=== PATIENT | female | born 1985 | race Caucasian/White ===

== ENCOUNTER 2020-11-09 20:03 | Emergency (ER) | payer OTHER, SELFPAY ==
--- NOTE | ~2020-11-09 | US_ITS ---
EXAMINATION: US OB <= 14 weeks fetus EXAM DATE: 11/09/2020 23:35 INDICATION: Abdominal, pelvic pain. Back pain. 1st trimester. TECHNIQUE: Pelvic obstetrical transabdominal sonogram was performed by a technologist. There are mu ltiple grayscale and Doppler images available for interpretation. There are no earlier studies of th is gestation for comparison. FINDINGS: Uterus measures 11.9 x 9.0 x 7.6 cm. There is intrauterine gestation sac. pole with heart rate confirmed at 167 beats per minute. The 2.9 cm crown-rump length corresponds to estimated gestational age by ultrasound of 9 weeks 5 days, MARIA 06/09/2021. Yolk sac is identified. There is no sonographic evidence of subchorionic hemorrhage. The ovaries are morphologically normal. IMPRESSION: Early live intrauterine gestation, age by ultrasound 9 weeks 5 days. Reviewed, dictated and finalized at location A. IMPRESSION: Early live intrauterine gestation, age by ultrasound 9 weeks 5 day s.
[2020-11-09 20:10] VITALS: BP 116/71; PULSE 104; RESP 16; TEMP 37.1; O2SAT 100
[2020-11-09 20:34] VITALS: BP 118/73; PULSE 101; RESP 18; O2SAT 98
[2020-11-09 20:36] LABS: Add Urine Microscopic? YES; Amorphous Sediment Urine Moderate; Appearance Urine Cloudy (Clear); Bacteria Urine Trace /hpf; Bilirubin Urine Negative (Negative); Blood Urine Negative (Negative); Color Urine Yellow (Yellow); Glucose Urine UA Negative (Negative); Ketones Urine Negative (Negative); Leukocyte Esterase Ur Negative LEU/UL (Negative); Mucus Urine Rare /lpf; Nitrate Urine Negative (Negative); Protein Urine Negative (Negative); RBC Urine 0-2 /hpf (0-2); Specific Grav Ur 1.021 (1.001-1.035); Squamous Epithelial Cell Urine Moderate /hpf (Few); WBC Urine 0-3 /hpf
[2020-11-09 20:49] LABS: Basophils Percent Auto 0.2 % (0.2-1.2); Eosinophils Absolute Auto 0.1 K/mm3 (0-0.3); Eosinophils Percent Auto 0.9 % (0-4.4); Hematocrit 31.6 % (37.0-47.0); Immature Granulocyte Absolute 0.03 K/mm3 (0.00-0.031); Immature Granulocyte Percent A 0.3 % (0-0.5); Lymphocytes Absolute Auto 2.62 K/mm3 (0.9-3.2); Lymphocytes Percent Auto 24.8 % (18.3-44.2); Mean Corpuscular HGB Conc 34.8 g/dl (32-36); Mean Corpuscular Hemoglobin 32.4 pg (26-34); Mean Corpuscular Volume 93.2 fl (80-100); Mean Platelet Volume 9.4 fl (7.4-10.4); Monocytes Percent Auto 9.2 % (2.6-8.5); Neutrophils Absolute Auto 6.8 K/mm3 (1.3-6.7); Neutrophils Percent Auto 64.6 % (45.5-73.1); Platelet Count Result 264 k/mm3 (150-375); Red Blood Count 3.39 M/mm3 (4.2-5.4); Red Cell Distribution Width 13.2 % (11.5-14.5); White Blood Count 10.6 K/mm3 (4.5-10.0)
--- NOTE | 2020-11-09 20:54 | ED.ABDPAIN ---
HPI - Abdominal Pain General Chief Complaint: Abdominal Pain Stated Complaint: 4-6 weeks , cramping Time Seen by Provider: 11/09/20 20:22 Source: patient and RN notes reviewed Mode of arrival: ambulatory Limitations: no limitations History of Present Illness HPI narrative: This is a 35 year old female approximately 8 wk GA who presents for evaluation of abdominal cramping. LMP 09/09/20. She reports intermittent lower abdominal cramping that worsened 2 days ago. She also reports diarrhea , nausea and vomiting yesterday. She is also complaining of increased urinary urgency and frequency. She denies fever or chills. She also denies vaginal bleeding or spotting. [facility] [place]. Pain 06/26. Related Data Allergies Allergy/AdvReac Type Severity Reaction Status Date / Time Sulfa (Sulfonamide AdvReac Other Verified 11/09/20 20:35 Antibiotics) Review of Systems Review of Systems: All systems reviewed & are unremarkable except as noted in HPI and below PMFSH Past Medical History Medical History (Updated 11/10/20 @ 01:[address] MD) Kidney stones Surgical History Surgical History (Updated 11/09/20 @ 20:[address] MD) No pertinent past surgical history Social History Social History (Updated 11/09/20 @ 20:[address] MD) Smoking status: Never smoker Exam Const: General: alert Orientation/consciousness: patient oriented x3 Eyes: EOM: EOMs intact bilaterally Resp: Effort & Inspection: normal respiratory effort and no retractions Auscultation: clear to auscultation bilaterally Cardio: Rate: regular rate Rhythm: regular rhythm Heart sounds: no murmurs GI: GI Palp: Yes Soft to palpation, Yes Tenderness to palpation present (GI) (suprapubic), No Guarding due to palpation present (GI) and No Rigid due to palpation Auscultation: normal bowel sounds Skin: General skin exam: normal color Rashes: no rashes Neuro: General: patient oriented x3, moves all extremities and CN's II-XI intact bilaterally Psych: Mental Status: mental status grossly normal Affect: normal affect Course Reevaluation(s) Reevaluation #1: I reviewed US with patient. She has no vaginal bleeding or sign of hemorrhage on US so no rhogam. She has appointment on Wednesday. She defers PElvic at this time. Date: 11/10/20 Time: 01:07 Vital Signs Vital signs: Vital Signs Temperature 98.8 F 11/09/20 20:10 Pulse Rate 104 H 11/09/20 20:10 Respiratory Rate 16 11/09/20 20:10 Blood Pressure 116/71 11/09/20 20:10 Pulse Oximetry 100 11/09/20 20:10 Temperature 98.2 F 11/10/20 01:36 Pulse Rate 78 11/10/20 01:43 Respiratory Rate 18 11/10/20 01:43 Blood Pressure 117/72 11/10/20 01:43 Pulse Oximetry 99 11/10/20 01:43 MDM - Abdominal Pain Lab Data Attestation: I reviewed the patient's lab results. Result diagrams: 11/09/20 20:42 11/09/20 20:42 Labs: Lab Results 11/09/20 11/09/20 11/09/20 Range/Units 20:13 20:42 20:42 WBC 10.6 H (4.5-10.0) K/mm3 RBC 3.39 L (4.2-5.4) M/mm3 Hgb 11.0 L (12.0-15.0) g/dL Hct 31.6 L (37.0-47.0) % MCV 93.2 (80-100) fl MCH 32.4 (26-34) pg MCHC 34.8 (32-36) g/dl RDW 13.2 (11.5-14.5) % Plt Count 264 (150-375) k/mm3 MPV 9.4 (7.4-10.4) fl Immature Gran % (Auto) 0.3 (0-0.5) % Neut % (Auto) 64.6 (45.5-73.1) % Lymph % (Auto) 24.8 (18.3-44.2) % [place] % (Auto) 9.2 H (2.6-8.5) % Eos % (Auto) 0.9 (0-4.4) % Baso % (Auto) 0.2 (0.2-1.2) % Lymph # (Auto) 2.62 (0.9-3.2) K/mm3 [place] # (Auto) 1.0 H (0.1-0.6) K/mm3 Eos # (Auto) 0.1 (0-0.3) K/mm3 Baso # (Auto) 0.0 (0.0-0.1) K/mm3 Abs Immat Gran (auto) 0.03 (0.00-0.031) K/mm3 Absolute Neuts (auto) 6.8 H (1.3-6.7) K/mm3 Absolute Nucleated RBC 0.0 (0.0-0.012) K/mm3 Nucleated RBC %
[2020-11-09 21:00] LABS: Alanine Aminotransferase 17 U/L (4-35); Albumin Level 3.7 g/dL (3.5-5.1); Alkaline Phosphatase 28 U/L (38-126); Anion Gap 8 mmol/L (8-16); Aspartate Amino Transferase 20 U/L (14-36); Bilirubin,Total 0.6 mg/dL (0.2-1.3); Blood Urea Nitrogen 7 mg/dL (7-17); Calcium 8.9 mg/dL (8.4-10.2); Carbon Dioxide 24 mmol/L (22-30); Chloride 101 mmol/L (98-107); Estimated Glomerular Filt Rate > 60; Glucose 96 mg/dL (65-110); Lipase 37 U/L (23-300); Potassium 3.5 mmol/L (3.4-5.0); Sodium 133 mmol/L (137-145)
[2020-11-09] MEDS: LACTATED RINGERS 1,000 ML 999 ML IV CONT (21:48)
--- NOTE | 2020-11-09 23:44 | PC.NURSE ---
assume care of pt at this time. received report from nadya hemphill.
[2020-11-09 23:46] VITALS: BP 105/48; PULSE 74; RESP 20; O2SAT 98
[2020-11-10 01:36] VITALS: BP 118/75; PULSE 80; RESP 20; TEMP 36.8; O2SAT 100
[2020-11-10 01:43] VITALS: BP 117/72; PULSE 78; RESP 18; O2SAT 99
== END 2020-11-10 01:45 | disposition home or self-care (01) ==
PROVIDERS: Emergency Medicine; Emergency Provider General Practice
DX: O26.891 Other specified pregnancy related conditions, first trimester (principal); R10.30 Lower abdominal pain, unspecified; Z87.442 Personal history of urinary calculi; Z3A.09 9 weeks gestation of pregnancy
CPT/HCPCS: 36415; 76801; 80053; 81001; 81025; 83690; 84702; 85025; 85461; 90384; 96361; 96365; 96372; 99284; J0131; J2790; J7120

== ENCOUNTER → 2021-02-27 13:21 | Outpatient (CLI) | payer OTHER, SELFPAY ==
--- NOTE | ~2021-02-27 | US_ITS ---
EXAMINATION: US OB /maternal detail DATE: 02/27/2021 14:19 INDICATION: survey TECHNIQUE: Multiple obstetric sonographic images performed. FINDINGS: Comparison ultrasound dated 11/09/2020 There is a single living fetus in breech presentation. The placenta is posterior without placenta pr evia. Placental margin is 6.2 cm to the cervix. Amniotic fluid volume is subjectively normal. cardiac activity and movement is noted with a heart rate of 167 beats per minute. C ervical length is 3.1 cm. The following anatomy was identified as normal: 4 chamber heart 3 vessel cord cord insertion kidneys urinary bladder stomach spine diaphragm ventricles cisterna magna cerebellum The following biometric data were obtained: BPD: 62mm corresponds to gestational age 25 weeks 1 days. Head circumference: 233 mm corresponds to gestational age 25 weeks 3 days. Abdominal circumference: 211 mm corresponds to gestational age 25 weeks 4 days. Femur length: 45 mm corresponds to gestational age 24 weeks 5 days. Head circumference to abdominal circumference ratio: 1.11 (normal range for expected gestational age is 1.04-1.22). Estimated weight: 789 grams +/- 118 grams using Hadlock method, 32.3% IMPRESSION: 1: Single living intrauterine with an estimated gestational age of 25weeks 3days by initial ultrasound measurements, with an EDC of 06/09/2021 in breech presentation. 2. Normal survey. Reviewed, dictated and finalized at location A. [employer] IMPRESSION: 1: Single living intrauterine with an estimated gestational age of 25 weeks 3days by initial ultrasound measurements, with an EDC of 06/09/2021 in richard ech presentation. 2. Normal survey.
== END ==
PROVIDERS: Visit Provider Obstetrics & Gynecology
DX: Z34.92 Encounter for supervision of normal pregnancy, unspecified, second trimester (principal); Z3A.25 25 weeks gestation of pregnancy
CPT/HCPCS: 76805

== ENCOUNTER 2021-05-06 13:30 | Outpatient (RCR) | payer OTHER, SELFPAY ==
[2021-05-09] MEDS: RHO(D) IMMUNE GLOBULIN 300 MCG/2 ML SYRINGE IM (13:48)
== END 2021-08-04 23:59 | disposition home or self-care (01) ==
LOC: ANHLAB 13:30
PROVIDERS: Visit Provider Obstetrics & Gynecology
DX: Z29.13 Encounter for prophylactic Rho(D) immune globulin (principal); O36.0190 Maternal care for anti-D [Rh] antibodies, unspecified trimester, not applicable or unspecified; Z3A.00 Weeks of gestation of pregnancy not specified
CPT/HCPCS: 36415; 85461; 90384; 96372; J2790

== ENCOUNTER 2021-05-08 15:47 | Observation (INO) | payer OTHER, SELFPAY ==
[2021-05-08] VITALS (10 sets, daily range): BP systolic 95–118; BP diastolic 46–68; PULSE 80–109; TEMP 37.1–37.3; BMI 18.8
[2021-05-08] MEDS: TERBUTALINE SULFATE 1 MG/ML VIAL 0.25 MG SUB-Q ×2 (18:38→20:33)
[2021-05-08] MEDS: BETAMETHASONE SOD PHOS/ACETATE 30 MG/5 ML VIAL 12 MG IM (18:42)
--- NOTE | 2021-05-10 08:08 | PM.OBTRLD ---
OB - Triage/Final Diagnosis Visit Information Reason for evaluation: threatened labor Comments/Additional reasons for admission: I have assessed the risk for this patient, Aicha Miles, and determined that she would benefit from observation care.
== END 2021-05-08 21:33 | disposition home or self-care (01) ==
PROVIDERS: Admitting Provider Obstetrics & Gynecology; Visit Provider Obstetrics & Gynecology
DX: O47.03 False labor before 37 completed weeks of gestation, third trimester (principal); Z3A.35 35 weeks gestation of pregnancy
CPT/HCPCS: 96372; G0378; G0379; J0702; J3105

== ENCOUNTER 2021-05-09 13:13 | Outpatient (CLI) | payer OTHER, SELFPAY ==
[2021-05-09] MEDS: BETAMETHASONE SOD PHOS/ACETATE 30 MG/5 ML VIAL 12 MG IM (13:50)
== END 2021-05-09 13:14 | disposition home or self-care (01) ==
LOC: ANHOBOP 13:20
PROVIDERS: Visit Provider Obstetrics & Gynecology
DX: Z29.8 Encounter for other specified prophylactic measures (principal); O47.03 False labor before 37 completed weeks of gestation, third trimester; Z3A.36 36 weeks gestation of pregnancy
CPT/HCPCS: 96372; J0702

== ENCOUNTER 2021-05-10 15:04 | Observation (INO) | payer OTHER, SELFPAY ==
[2021-05-10 16:00] VITALS: TEMP 36.6
[2021-05-10] MEDS: ONDANSETRON HCL ODT 4 MG TABLET PO (16:18)
--- NOTE | 2021-05-10 16:36 | OBADM ---
This patient, Aicha Miles, admitted to the OB room Labor/Delivery/Recovery 104 for observation. Patient/family oriented to hospital policies and general routines including ID bracelet, bed and alarms, visiting hours, pain management, procedures, bathroom and other care routines, personal items, smoking policy, room service/diet, and visiting hours. Patient/Family are encouraged to report perceived risks to care and to ask questions if they do not understand what they are told or what they should do.
--- NOTE | 2021-05-10 16:37 | PC.NURSE ---
2156--Discussed plan of care with Dr. Maharaj. Pt is allowed to eat during observation for labor.
[2021-05-10 17:22] VITALS: BP 104/70; PULSE 97
[2021-05-10 17:30] VITALS: BP 110/67; PULSE 98
== END 2021-05-10 17:50 | disposition home or self-care (01) ==
LOC: ANHLDR 16:07
PROVIDERS: Admitting Provider Obstetrics & Gynecology; Visit Provider Obstetrics & Gynecology
DX: O47.9 False labor, unspecified (principal); Z3A.00 Weeks of gestation of pregnancy not specified
CPT/HCPCS: 84112; A9270; G0378; G0379

== ENCOUNTER 2021-05-22 10:34 | Inpatient (IN) | payer OTHER, SELFPAY ==
[2021-05-22] VITALS (79 sets, daily range): BP systolic 62–150; BP diastolic 43–81; PULSE 69–124; RESP 16; TEMP 36.9–37.2; O2SAT 94–100; BMI 19.1
--- OUTSIDE RECORDS SUMMARY | 2021-05-22 10:58 | XMS_ITS | Encounter Summary ---
:1985 Author Reason for Visit COP EXAMINER problem +hpt pt seen at [facility] are is 24 weeks EDC: 06/06/2021 transfer/ no records release signed/ will open OB flow sheet when records are received / will wait to order labs / pt locke d Rhogam at 6 weeks at [facility] due to b eing RH- / pt states baby is male and is super low and feeling lots of vaginal pressure / Low lying placenta at 16 weeks has not had anatomy scan yet/ ss Assessment and Plan 1. Suppression of menstruation ? test, urine 2. Routine care ? US, obstetric, mater nal evaluation + anatomy - cervical length check Discussion Note: None recorded.Patient educational handouts: No information available. Plan of Care Reminders Provider Appointments None recorded. ? ? Lab [facility] mg Obgyn Test, Urine 02/21/2021 Shayne Ngo Referral None recorded. ? ? Procedures None recorded. ? ? Surgeries None recorded. ? ? Imaging US, Obstetric, An leeanna Maternal 02/21/2021 [facility] Imaging Evaluation + Anatomy Medications Name Start Date ? ? ondansetron HCl 4 mg tablet ? TAKE 1 TABLET BY MOUTH EVERY 6-8 HOURS NEEDED FOR NAUSEA AND VOMITING sertraline 100 mg tablet ? TAKE 1 TABLET BY MOUTH EVERY DAY Notes: sarahi Gonsales
--- OUTSIDE RECORDS SUMMARY | 2021-05-22 10:58 | XMS_ITS | Continuity of Care Document ---
:1985 Author Organization [facility] Care Team Providers Name Role Phone [facility] Unavailable Unavailable Medications Combined list of outpatient medications from Department of Defense and Veterans Affairs facilities. Medications provided include 1) outpatient medications from [facility] 15 months, and 2) patient-reported medications. Medication Details Route Status Patient Prescription Prescription Last Ordering Order Source Instructions Expires Number Dispense Provider Date Date ALBUTEROL Active [id number] [facility], 01/04/ Pharmac SULFATE HFA 2020 y Data (albuterol Transac sulfate), tion 90 MCG, HFA Service AER AD, Facilit INHALATION, y [facility]IN [facility], 8.5 g CANISTER ALBUTEROL Active [id number] REBEKAH, 09/03/ P harmac SULFATE HFA 2020 y Data (albuterol Transac sulfate), tion 90 MCG, HFA Service AER AD, Facilit INHALATION, y [facility], 18 g CANISTER AMOXICILLIN Active [id number] [facility], 12/18 8/ Pharmac
--- OUTSIDE RECORDS SUMMARY | 2021-05-22 10:58 | XMS_ITS ---
:1985 Author Care Team Providers Name Role Phone Jordan Maharaj Primary Care Provider Unavailable Allergies Code Code System Name Reaction Severity Status Onset Sulfa Itching Severe Active ? (Sulfonamid e Antibiotics ) Notes: Some allergies listed in Document: #[id number] could not be added to this patient's chart. Please review this docu ment and add these allergies to the patient's chart manually as needed. Medications Name Status Start Date Stop Date ? ? albuterol sulfate HFA 90 Completed ? 021 mcg/actuation aerosol inhaler amoxicillin 500 mg capsule Completed ? 02/21 TAKE 1 CAPSULE BY MOUTH THREE TIMES DAILY FOR 10 DAYS azithromycin 250 mg tablet Completed ? 02/21 benzonatate 100 mg capsule Completed ? 02/21 TAKE 1 CAPSULE BY MOUTH THREE TIMES DAILY NEEDED FOR COUGH buspirone 10 mg tablet Completed ? citalopram 10 mg tablet Completed 05/18/2018 02/22/20 21 Take 1 tablet every day by oral route. desvenlafaxine succinate ER 50 Completed ? 1 04/23/2020 mg tablet,extended release 24 hr doxycycline hyclate 100 mg capsule Completed ? 02/21/2021 TAKE 1 CAPSULE BY MOUTH EVERY 12 HOURS FOR 10 DAYS fluoxetine 20 mg capsule Completed ? 021 hydrocodone 5 mg-acetaminophen Completed ? 1 04/23/2020 325 mg tablet metoclopramide 10 mg tablet Completed ? 01/19
--- OUTSIDE RECORDS SUMMARY | 2021-05-22 10:58 | XMS_ITS | Encounter Summary ---
:1985 Author Reason for Visit new OB visit Assessment and Plan 1. Routine care ? glucose tolerance test, ge stational, 1-hour ? HIV (1+2) Ab screen, serum ? hemoglobin + hematocrit, b lood Discussion Note: None recorded.Patient educational handouts: No information available. Plan of Care Reminders Provider Appointments None recorded. ? ? Lab Glucose [facility] Tolerance Test, 04/01/2021 [facility] ( Lab) Gestational, 1-Hour ? HIV (1+2) Ab [facility] Screen, Serum 04/01/2021 [facility] ( Lab) ? Hemoglobin + [facility] Hematocrit, Blood 04/01/2021 [facility] (Lab) Referral None recorded. ? ? Procedures None recorded. ? ? Surgeries None recorded. ? ? Imaging None recorded. ? ? Medications Name Start Date ? ? ondansetron HCl 4 mg tablet ? TAKE 1 TABLET BY MOUTH EVERY 6-8 HOURS NEEDED FOR NAUSEA AND VOMITING sertraline 100 mg tablet ? TAKE 1 TABLET BY MOUTH EVERY DAY Notes: flinstone gummies Medications Administered None recorded. Vitals Height Weight
--- OUTSIDE RECORDS SUMMARY | 2021-05-22 10:59 | XMS_ITS ---
:1985 Author Care Team Providers Name Role Phone TAVON JOSEPH MD Primary Care Provider [phone] Allergies Code Code System Name Reaction Severity Status Onset Sulfa Itching Severe Active ? (Sulfonamid e Antibiotics ) Notes: Some allergies listed in Document: #[id number] could not be added to this patient's chart. Please review this docu ment and add these allergies to the patient's chart manually as needed. Medications Name Status Start Date Stop Date ? ? citalopram 10 mg tablet Active ? Not avai labmei Take 1 tablet every day by oral route. metoclopramide 10 mg tablet Completed ? 01/19 Take 1 tablet every 6-8 hours by oral route. ondansetron 4 mg disintegrating tablet Completed ? 03/15/2018 Take 1 tablet every 12 hours by oral route. ondansetron HCl 4 mg tablet Completed ? 06/2018 take 1 tablet PO every 6-8 hours prn Notes: otc- Problems Name Status Onset Date Source ? Unknown 10/21/2017 ? Procedures Date Name Performed by ? ? Tonsillectomy Information not jennifer randhawa Notes: age 8 11/18/2017 US, Obstetric, Maternal [facility] ([facility] Scheduling) Evaluation + Anatomy [address], [place] [address]
[2021-05-22 11:36] LABS: Basophils Absolute Auto 0.1 K/mm3 (0.0-0.1); Basophils Percent Auto 0.5 % (0.2-1.2); Eosinophils Absolute Auto 0.2 K/mm3 (0-0.3); Eosinophils Percent Auto 0.9 % (0-4.4); Hematocrit 31.2 % (37.0-47.0); Hemoglobin 10.5 g/dL (12.0-15.0); Immature Granulocyte Absolute 0.25 K/mm3 (0.00-0.031); Immature Granulocyte Percent A 1.4 % (0-0.5); Lymphocytes Absolute Auto 3.08 K/mm3 (0.9-3.2); Lymphocytes Percent Auto 17.9 % (18.3-44.2); Mean Corpuscular HGB Conc 33.7 g/dl (32-36); Mean Corpuscular Hemoglobin 31.3 pg (26-34); Mean Corpuscular Volume 92.9 fl (80-100); Mean Platelet Volume 10.4 fl (7.4-10.4); Monocytes Absolute Auto 1.5 K/mm3 (0.1-0.6); Monocytes Percent Auto 8.6 % (2.6-8.5); Neutrophils Absolute Auto 12.2 K/mm3 (1.3-6.7); Neutrophils Percent Auto 70.7 % (45.5-73.1); Platelet Count Result 288 k/mm3 (150-375); Red Blood Count 3.36 M/mm3 (4.2-5.4); Red Cell Distribution Width 14.1 % (11.5-14.5); White Blood Count 17.3 K/mm3 (4.5-10.0)
--- NOTE | 2021-05-22 11:38 | LDADM ---
This patient, Aicha Miles, was admitted to Labor/Delivery/Recovery 107 on 05/22/21 at 10:34. Plans for labor, pain management and were discussed with patient. Patient/family oriented to hospital policies and general routines including ID bracelet, bed and alarms, visiting hours, pain management, procedures, bathroom and other care routines, personal items, smoking policy, room service/diet and guest tray routines, security routines, and visiting hours. Patient/Family are encouraged to report perceived risks to care and to ask questions if they do not understand what they are told or what they should do. See OBIX for further documentation.
--- NOTE | 2021-05-22 12:00 | PM.IMHP ---
H&P: HPI History of Present Illness Date/Time: 05/22/21 12:00 Aicha is a 36yo @ 37.3wks (MARIA 06/09/21) who presented to L&D with contractions and leakage of fluid. She denies bleeding. Feeling movement. She was found to be ruptured and 4cm dilated. Her is complicated by: - H/o PTD@ 36.5wks - ESTEFANY at 30wks - H/o anxiety and depression on zoloft 100mg - RH negative s/p rhogam - Mild anemia - Tobacco abuse Chief Complaint: leakage of fluid Review of Systems Review of Systems: All systems reviewed & are unremarkable except as noted in HPI and below (HPI) PMFSH Past Medical History Medical History Kidney stones Surgical History Surgical History History of tonsillectomy at age 8 No pertinent past surgical history Family History Family History Mother Kidney stone Anxiety Depression Hypertension Sibling Kidney stone Grandparent Cancer Other Patient's mother is Social History Social History Smoking status: Light tobacco smoker Tobacco type: cigarettes Second hand tobacco smoke exposure: Yes Substance use: never Spiritual care concerns: No Meds Home Medications and Allergies Home Medications Medication Instructions Recorded Confirmed Type acetaminophen 500 mg tablet 500 mg PO Q6H PRN 04/29/21 05/22/21 History pediatric multivitamin no.19-folic 1 tablet PO DAILY 04/29/21 05/22/21 History acid 200 mcg chewable tablet ondansetron 4 mg PO Q6H PRN 05/06/21 05/22/21 History sertraline [Zoloft] 100 mg PO DAILY 05/06/21 05/22/21 History Allergies Allergy/AdvReac Type Severity Reaction Status Date / Time Sulfa (Sulfonamide AdvReac Other Verified 05/08/21 16:06 Antibiotics) Vital Signs Vital Signs - 24 hr 05/22/21 11:31 05/22/21 11:35 Pulse Rate 103 H 103 H Blood Pressure 127/75 127/75 Exam Const: General: cooperative, healthy appearing, comfortable and no acute distress Resp: Effort & Inspection: normal respiratory effort Cardio: Rate: regular rate GI: GI Palp: No abdominal tenderness and Yes Soft to palpation : Other: FHT's: 130's/ mod jerry/ + accels/ occasional mild variable - cat 2, overall reassuring TOCO: ctx q2-4min Cervix: 4.5/90/-1 membranes: SROM presentation: cephalic Skin: General skin exam: normal color Neuro: General: patient oriented x3 Extrem: General: normal to inspection Psych: Appearance: grossly normal Affect: normal affect Attitude: cooperative H&P: Results Labs Labs: Short CBC 05/22/21 Range/Units 11:22 WBC 17.3 H (4.5-10.0) K/mm3 Hgb 10.5 L (12.0-15.0) g/dL Hct 31.2 L (37.0-47.0) % Plt Count 288 (150-375) k/mm3 Assessment and Plan Assessment and plan (1) Active labor at term: Status: Acute Additional Plan - Admit to L&D - Pitocin if contractions space out - Continuous monitoring; currently reassuring - GBS negative - Anesthesia consult PRN pain
[2021-05-22] MEDS: LACTATED RINGERS 1,000 ML 125 ML IV CONT ×2 (12:25→14:59)
[2021-05-22] MEDS: OXYTOCIN 30 UNITS/NS 500 ML 30 UNITS/500 ML BAG IV CONT (12:25)
--- NOTE | 2021-05-22 12:32 | WPDHPUPDATE1 ---
History and Physical Update Update Date/Time: 05/22/21 12:32 History and Physical has been reviewed, including an updated exam of the patient. There are NO changes in the patient's condition. Risks, benefits, and alternatives have been discussed and questions answered. Patient agrees to proceed with procedure.
--- NOTE | 2021-05-22 14:38 | WPDANESEPP ---
Anes - Eval Pre Procedure Procedure: labor epidural Date/Time: 05/22/21 14:38 Surgeon: kaycee Pre Op Diagnosis: labor Patient Data Age: 36 Gender: F Height: 1.7 m Weight: 55.5 kg Last Vital Signs Temp 37.2 C 05/22/21 11:00 Pulse 116 H 05/22/21 13:01 BP 131/68 05/22/21 13:01 Allergies Allergy/AdvReac Type Severity Reaction Status Date / Time Sulfa (Sulfonamide AdvReac Other Verified 05/08/21 16:06 Antibiotics) Home Medications Medication Instructions Recorded Confirmed Type acetaminophen 500 mg tablet 500 mg PO Q6H PRN 04/29/21 05/22/21 History pediatric multivitamin no.19-folic 1 tablet PO DAILY 04/29/21 05/22/21 History acid 200 mcg chewable tablet ondansetron 4 mg PO Q6H PRN 05/06/21 05/22/21 History sertraline [Zoloft] 100 mg PO DAILY 05/06/21 05/22/21 History Laboratory Tests 05/22/21 05/22/21 05/22/21 11:22 11:22 11:22 WBC 17.3 K/mm3 H K/mm3 (4.5-10.0) RBC 3.36 M/mm3 L M/mm3 (4.2-5.4) Hgb 10.5 g/dL L g/dL (12.0-15.0) Hct 31.2 % L % (37.0-47.0) MCV 92.9 fl fl (80-100) MCH 31.3 pg pg (26-34) MCHC 33.7 g/dl g/dl (32-36) RDW 14.1 % % (11.5-14.5) Plt Count 288 k/mm3 k/mm3 (150-375) MPV 10.4 fl fl (7.4-10.4) Immature Gran % (Auto) 1.4 % H % (0-0.5) Neut % (Auto) 70.7 % % (45.5-73.1) Lymph % (Auto) 17.9 % L % (18.3-44.2) [place] % (Auto) 8.6 % H % (2.6-8.5) Eos % (Auto) 0.9 % % (0-4.4) Baso % (Auto) 0.5 % % (0.2-1.2) Lymph # (Auto) 3.08 K/mm3 K/mm3 (0.9-3.2) [place] # (Auto) 1.5 K/mm3 H K/mm3 (0.1-0.6) Eos # (Auto) 0.2 K/mm3 K/mm3 (0-0.3) Baso # (Auto) 0.1 K/mm3 K/mm3 (0.0-0.1) Abs Immat Gran (auto) 0.25 K/mm3 H K/mm3 (0.00-0.031) Absolute Neuts (auto) 12.2 K/mm3 H K/mm3 (1.3-6.7) Absolute Nucleated RBC 0.0 K/mm3 K/mm3 (0.0-0.012) Nucleated RBC % 0.0 % % (0.0-0.2) RPR Pending Blood Type A Negative Antibody Screen Positive Antibody Identification Pending Antigen Identification Pending RHIANNA, IgG Interpret Not Performed RHIANNA, Poly Interpret Negative RHIANNA, Complement Interp Not Performed Patient hx anesthesia problems: none Family hx anesthesia problems: none Results Review: All pre-operative results and documents have been reviewed as part of the pre-operative evaluation. [facility] Past Medical History Medical History Kidney stones Surgical History Surgical History History of tonsillectomy at age 8 No pertinent past surgical history Family History Family History Mother Kidney stone Anxiety Depression Hypertension Sibling Kidney stone Grandparent Cancer Other Patient's mother is Social History Social History Smoking status: Light tobacco smoker Tobacco type: cigarettes Second hand tobacco smoke exposure: Yes Substance use: never Spiritual care concerns: No Exam Day of Procedure 05/22/21 14:38
--- NOTE | 2021-05-22 16:30 | PM.OBPNLAB ---
Pain Control Date/time seen: 05/22/21 16:30 Pain control: epidural Pelvic Exam Dilation (cm): 6 Effacement (%): 90 station: -1 Amniotic membrane status: Ruptured (SROM, clear) Contractions Monitor mode: External Contraction frequency: 2 Contraction pattern: Regular Status status: Category ll Comments: occasional mild variables Assessment and Plan Pitocin rate (mU/min): 6 Assessment: active labor Plan: continuous present management
--- NOTE | 2021-05-22 17:55 | P.PCNOB_ITS ---
OB - Delivery Note Procedure Delivery date: 05/22/21 events: Labor Augmentation (for SROM) Intrapartal events: Deceleration Delivery augmentation: rupture of membranes Delivery monitor: external FHT and external uterine Route of delivery: Laceration Description: None Quantitative Blood Loss (ml): 120 Anesthesia type: Epidural Disposition: floor Baby Date of : 05/22/21 Time of : 17:38 Weeks of gestation at delivery: 37 (.3) gender: Male Weight (pounds): 7 Weight (ounces): 2 presentation: vertex Placenta delivery description: Expressed cord vessel description: 3 Vessels and Around Extremity x2 score one minute: 8 score five minutes: 9 Narrative: Aicha progressed to complete dilation with strong desire to push. She pushed for approximately 30 minutes with good maternal effort. She delivered the head over intact perineum. No nuchal cord was palpated. She easily delivered the 's shoulders and body without complications. The umbilical cord was noted to be wrapped around each leg, explaining the variable decelerations. The infant was immediately placed skin to skin and small cry was heard. The umbilical cord was then clamped and cut. However, persistent grunting was noted and he was taken to the warmer. A segment of the cord was collected for cord gases. The remaining cord blood was collected for typing. With Pitocin running and gentle downward traction on the cord, the placenta delivered without complications. Bimanual massage was performed and good uterine tone with mini mal bleeding was noted. The patient was examined and no lacerations were noted. Sponge, lap, instrument, and needle counts were correct at the end of the procedure. Mom was left in the birthing suite in a stable condition. The infant was taken to the nursery for further evaluation of the persistent grunting. [facility] Delivery Billing Delivery Delivery: Delivery Charge
[2021-05-22] MEDS: OXYTOCIN 30 UNITS/NS 500 ML 30 UNITS/500 ML BAG 125 UNITS IV CONT (18:11)
[2021-05-22] MEDS: diphenhydrAMINE HCl CAP 25 MG CAPSULE PO (18:26)
--- NOTE | 2021-05-22 20:30 | OBPPTRN ---
Patient transferred to post room #286 via wheelchair. Support person present. Oriented to unit, room, information board, rooming in, admission packet and security measures. Patient verbalizes understanding.
[2021-05-22] MEDS: IBUPROFEN 600 MG TABLET PO (20:57)
[2021-05-23] MEDS: ACETAMINOPHEN 325 MG TABLET 650 MG PO ×3 (01:58→17:14)
[2021-05-23 04:00] VITALS: BP 112/53; PULSE 70; RESP 16; TEMP 36.8; O2SAT 99
[2021-05-23 05:11] LABS: Hematocrit 30.5 % (37.0-47.0); Hemoglobin 10.2 g/dL (12.0-15.0)
[2021-05-23] MEDS: IBUPROFEN 600 MG TABLET PO ×2 (06:47→14:06)
[2021-05-23] MEDS: SERTRALINE HCL 50 MG TABLET 100 MG PO (06:47)
[2021-05-23] MEDS: DOCUSATE SODIUM 100 MG CAPSULE PO ×2 (06:49→17:12)
[2021-05-23] MEDS: MULTIVIT/MIN/PREN/FOL AC/IRON TABLET 1 TAB PO (06:50)
[2021-05-23 08:00] VITALS: BP 112/61; PULSE 75; RESP 16; TEMP 36.6; O2SAT 99
--- NOTE | 2021-05-23 08:32 | PM.OBPNVD ---
OB - PN: Subj Subjective Date/time seen: 05/23/21 08:32 Narrative: PPD#1 Aicha reports doing well today. Her bleeding is home health cna. Her pain is controlled. She is tolerating regular diet, voiding, passing gas, and ambulating without issues. She is breast feeding. She would like her son circumcised. She would like to go home today. OB - PN: Obj Data Labs CBC & Chem 7: 05/23/21 04:20 Labs: Laboratory Results - last 24 hr 05/22/21 05/22/21 05/23/21 11:22 11:22 04:20 WBC 17.3 H RBC 3.36 L Hgb 10.5 L 10.2 L Hct 31.2 L 30.5 L MCV 92.9 MCH 31.3 MCHC 33.7 RDW 14.1 Plt Count 288 MPV 10.4 Immature Gran % (Auto) 1.4 H Neut % (Auto) 70.7 Lymph % (Auto) 17.9 L [place] % (Auto) 8.6 H Eos % (Auto) 0.9 Baso % (Auto) 0.5 Lymph # (Auto) 3.08 [place] # (Auto) 1.5 H Eos # (Auto) 0.2 Baso # (Auto) 0.1 Abs Immat Gran (auto) 0.25 H Absolute Neuts (auto) 12.2 H Absolute Nucleated RBC 0.0 Nucleated RBC % 0.0 Blood Type A Negative Antibody Screen Positive Antibody Identification Passive Due to RH Imm Glob Antigen Identification Not Reportable RHIANNA, IgG Interpret Not Performed RHIANNA, Poly Interpret Negative RHIANNA, Complement Interp Not Performed Screen Baby's Blood Type Baby's RHIANNA Doses of RhIg Required 05/23/21 04:20 WBC RBC Hgb Hct MCV MCH MCHC RDW Plt Count MPV Immature Gran % (Auto) Neut % (Auto) Lymph % (Auto) [place] % (Auto) Eos % (Auto) Baso % (Auto) Lymph # (Auto) [place] # (Auto) Eos # (Auto) Baso # (Auto) Abs Immat Gran (auto) Absolute Neuts (auto) Absolute Nucleated RBC Nucleated RBC % Blood Type A Negative Antibody Screen TNP Antibody Identification Antigen Identification RHIANNA, IgG Interpret RHIANNA, Poly Interpret RHIANNA, Complement Interp Screen Negative Baby's Blood Type A pos Baby's RHIANNA Negative Doses of RhIg Required 1 OB - PN A/P Assessment and Plan (1) Normal vaginal delivery: Code(s): O80 - Encounter for full-term uncomplicated delivery Status: Acute Plan day: 1 Plan: routine care Comments: - Pelvic rest; take meds as prescribed - ER return precautions: fever, n/v/abd pain, bleeding, HTN Time Spent With Patient Time: Total time spent is greater than 50% in coordination of care (as documented) at patient's floor/unit and/or counseling patient: Review of Systems Constitutional: Constitutional: Denies chills, Denies fever(s) and Denies headache(s) Eyes: Eyes: Denies change in vision ENT: Denies dizziness and Denies headache(s) Cardiovascular: Cardiovascular: Denies chest pain, Denies palpitations and Denies dyspnea Respiratory: Respiratory: Denies cough and Denies dyspnea Gastrointestinal: Gastrointestinal: Denies nausea and Denies vomiting Neurologic: Denies dizziness and Denies headache(s) Endocrine: Endocrine: Denies palpitations Exam Const: General: cooperative, comfortable and no acute distress Orientation/consciousness: patient oriented x3 Resp: Effort & Inspection: normal respiratory effort Auscultation: clear to auscultation bilaterally Cardio: Rate: regular rate GI: Inspection: non-distended GI Palp: No abdominal tenderness and Yes Soft to palpation Auscultation: normal bowel sounds : Other: fundus firm Skin: General skin exam: normal color Neuro: General: patient oriented x3 Extrem: General: normal to inspection Psych: Appearance: grossly normal Affect: normal affect Attitude: cooperative
[2021-05-23 09:25] LABS: Rapid Plasma Reagin Non-Reactive (NonReactive)
--- NOTE | 2021-05-23 10:09 | PM.OBDSVD ---
DS: Admitting Diagnosis Discharge Date 05/23/21 Admitting Diagnosis leakage of fluid DS: Discharge Diagnosis Discharge Diagnosis (1) Normal vaginal delivery: Code(s): O80 - Encounter for full-term uncomplicated delivery Status: Acute OB - DS: Summary OB Procedures : Ultrasound OB Procedures Intrapartum: Spontaneous Vag Delivery OB Procedures: : RHo (D) lg Peripartum Data Infant Delivery Method: Natural Vaginal Laceration Description: None complications: none 1: Gender: Male Disposition of : home Status at Discharge Functional status at discharge: independent ambulation Overall status at discharge: patient is back to baseline Time Spent with Patient Time attestation: Total time spent providing and/or coordinating discharge services: Time spent: Less than 30 minutes Exam Const: General: cooperative, comfortable and no acute distress Orientation/consciousness: patient oriented x3 Resp: Effort & Inspection: normal respiratory effort Auscultation: clear to auscultation bilaterally Cardio: Rate: regular rate GI: Inspection: non-distended GI Palp: No abdominal tenderness and Yes Soft to palpation Auscultation: normal bowel sounds : Other: fundus firm Skin: General skin exam: normal color Neuro: General: patient oriented x3 Extrem: General: normal to inspection Psych: Appearance: grossly normal Affect: normal affect Attitude: cooperative DS: Data Data Completed and Pending Labs on day of discharge: Labs from last 24 hours 05/23/21 05/23/21 05/22/21 04:20 04:20 11:22 WBC RBC Hgb 10.2 L Hct 30.5 L MCV MCH MCHC RDW Plt Count MPV Immature Gran % (Auto) Neut % (Auto) Lymph % (Auto) [place] % (Auto) Eos % (Auto) Baso % (Auto) Lymph # (Auto) [place] # (Auto) Eos # (Auto) Baso # (Auto) Abs Immat Gran (auto) Absolute Neuts (auto) Absolute Nucleated RBC Nucleated RBC % RPR Blood Type A Negative A Negative Antibody Screen TNP Positive Antibody Identification Passive Due to RH Imm Glob Antigen Identification Not Reportable RHIANNA, IgG Interpret Not Performed RHIANNA, Poly Interpret Negative RHIANNA, Complement Interp Not Performed Screen Negative Baby's Blood Type A pos Baby's RHIANNA Negative Doses of RhIg Required 1 05/22/21 05/22/21 11:22 11:22 WBC 17.3 H RBC 3.36 L Hgb 10.5 L Hct 31.2 L MCV 92.9 MCH 31.3 MCHC 33.7 RDW 14.1 Plt Count 288 MPV 10.4 Immature Gran % (Auto) 1.4 H Neut % (Auto) 70.7 Lymph % (Auto) 17.9 L [place] % (Auto) 8.6 H Eos % (Auto) 0.9 Baso % (Auto) 0.5 Lymph # (Auto) 3.08 [place] # (Auto) 1.5 H Eos # (Auto) 0.2 Baso # (Auto) 0.1 Abs Immat Gran (auto) 0.25 H Absolute Neuts (auto) 12.2 H Absolute Nucleated RBC 0.0 Nucleated RBC % 0.0 RPR Non-reactive Blood Type Antibody Screen Antibody Identification Antigen Identification RHIANNA, IgG Interpret RHIANNA, Poly Interpret RHIANNA, Complement Interp Screen Baby's Blood Type Baby's RHIANNA Doses of RhIg Required Discharge Plan Discharge Attending physician on discharge: Neelima Burch Discharging Clinician: Neelima Burch Anticipated Discharge Date/Time: 05/23/21 18:00 Patient Disposition: Home, Self-Care Activity: may shower, may drive after 2 weeks and pelvic rest Diet: regular Patient Instructions: Antibiotic Form Stand Alone Forms: General Discharge Information Follow-up/Referrals: Neelima Burch MD [Physician] - 4 Weeks Discharge Medications: New acetaminophen [Mapap (acetaminophen)] 325 mg Tablet 650 mg PO Q6H PRN (Reason: Mild Pain (1-3) Or Headache) 10 Days Qty: 60 RF: 0 docusate sodium 100 mg Capsule 100 mg PO BID PRN (Reason: Constipation) 30 Days Qty: 60 RF: 0 ibuprofen 600 mg Tablet 600 mg PO Q6H PRN (Reason: Professional Nurse
[2021-05-23] MEDS: RHO(D) IMMUNE GLOBULIN 300 MCG/2 ML SYRINGE IM (11:07)
--- NOTE | 2021-05-23 11:27 | PC.NURSE ---
[id number] Consulted with patient and mother shared her extensive experience with her last baby and how went. Parents both shared experiences of the frustration, lack of milk, trying everything and balancing feeding the with her mental health history that is still managed today. Mother plans to breastfeed and supplement with formula. Clarified with parents the desire to make human milk for as long as she can. Reviewed frequent stimulation for milk production, nipple stretching, breast hand expression or effective nursing 8-12 times in 24 hours. Mother states she will give it all another attempt but not put too much pressure on herself. Mother voiced she is able to latch without discomfort most of the time and detach when there is pain. Nipple care reviewed. Mother verbalizes understanding to call out for RN assistance if she is unable to latch for feeding or she has discomfort with nursing and to initiate feeding when feeding cues are visualized or three hours from the start of the last feeding. Reported to primary RN
[2021-05-23 12:30] VITALS: BP 103/63; PULSE 86; RESP 16; TEMP 36.7; O2SAT 98
[2021-05-23 17:12] VITALS: BP 114/75; PULSE 93; RESP 18; TEMP 36.2
[2021-05-26 08:44] VITALS: BP 109/70; PULSE 88; RESP 20; TEMP 37.4; O2SAT 97
== END 2021-05-23 19:50 | disposition home or self-care (01) | DRG 807 ==
LOC: ANHOB2 05-23 09:45 → ANHLDR 05-26 10:59 → ANHOB2 05-26 10:59
PROVIDERS: Admitting Provider Obstetrics & Gynecology; Visit Provider Obstetrics & Gynecology
DX: O76 Abnormality in fetal heart rate and rhythm complicating labor and delivery (principal); Z37.0 Single live birth; O99.344 Other mental disorders complicating childbirth; F41.8 Other specified anxiety disorders; O99.02 Anemia complicating childbirth; D64.9 Anemia, unspecified; O99.334 Smoking (tobacco) complicating childbirth; F17.210 Nicotine dependence, cigarettes, uncomplicated; O69.82X0 Labor and delivery complicated by other cord entanglement, without compression, not applicable or unspecified; Z3A.37 37 weeks gestation of pregnancy; Z23 Encounter for immunization
CPT/HCPCS: 36415; 85014; 85018; 85025; 85461; 86592; 86850; 86880; 86900; 86901; 86902; 90384; 90471; 90653; A9270; G0008; J2590; J2790; J2795; J7120

== ENCOUNTER 2021-12-23 10:30 | Outpatient (CLI) | payer OTHER, SELFPAY ==
--- NOTE | ~2021-12-23 | XR_ITS ---
EXAMINATION:XR cervical spine 4-5V DATE: 12/23/2021 10:58 INDICATION: Neck pain TECHNIQUE: AP, lateral, lateral swimmers and odontoid views of the cervical spine are provided. COMPARISON: None FINDINGS: There are 2 mm of retrolisthesis of C5 on C6. The odontoid is intact. No fracture is identi fied. There is mild loss of intervertebral disc space height at C5-6. The vertebral body heights are normal. There is mild bilateral uncovertebral joint osteoarthritis at C5-6. Prevertebral soft tissues are normal. IMPRESSION: 1. Mild cervical spondylosis without acute findings. Reviewed, dictated and finalized at location B.
--- NOTE | ~2021-12-23 | XR_ITS ---
EXAMINATION: XR lumbar spine 2-3V DATE: 12/23/2021 10:58 INDICATION: Numbness and tingling of the toes TECHNIQUE: Anteroposterior and lateral views of the lumbar spine, and cone-down lateral view of the l umbosacral junction were obtained. COMPARISON: None. FINDINGS: There is no fracture, dislocation, or subluxation. The vertebral body heights, alignment, a nd intervertebral disc spaces are normal. The paravertebral soft tissues are unremarkable. A moderate volume of colonic stool is present. IMPRESSION: 1. No acute osseous abnormality. Reviewed, dictated and finalized at location B.
--- NOTE | ~2021-12-23 | XR_ITS ---
EXAMINATION: XR chest 2V DATE: 12/23/2021 10:59 INDICATION: Chest pain TECHNIQUE: PA and lateral views of the chest are obtained. COMPARISON: None available FINDINGS: The lungs are free of acute opacities. No pleural effusion or pneumothorax. The cardiomedia stinal silhouette is normal. The visualized bones and soft tissues are unremarkable. IMPRESSION: 1. No acute cardiopulmonary abnormality. Reviewed, dictated and finalized at location B.
== END 2021-12-23 10:31 | disposition home or self-care (01) ==
PROVIDERS: PCP Emergency Medicine; Visit Provider Emergency Medicine
DX: M47.812 Spondylosis without myelopathy or radiculopathy, cervical region (principal); M54.50 Low back pain, unspecified; R20.0 Anesthesia of skin
CPT/HCPCS: 71046; 72050; 72100

== ENCOUNTER 2023-04-29 10:56 | Outpatient (RCR) | payer OTHER, SELFPAY ==
--- NOTE | 2023-04-02 08:11 | PCPTNOTE ---
Pt could not be seen for her initial evaluation waiting for approval from the health insurance adjuster.
--- NOTE | 2023-04-21 09:33 | PCPTNOTE ---
Patient did not show up for scheduled initial evaluation this date.
--- NOTE | 2023-04-29 17:04 | OPREHPOC ---
Outpatient Therapy Plan of Care This is a Multidisciplinary Plan of Care that may contain components documented by all disciplines (PT, OT, and ST.) PT Problem 1 PT Problem #1 Knowledge Deficit PT Goal 1 Goal Pt to be IND with issued HEP Target Visit 8 PT Problem 2 PT Problem #2 Pain PT Goal 1 Goal Pt to report neck pain no greater than 3/10 in the last week . Target Visit 8 PT Goal 2 Goal Pt to report low back pain no greater than 3/10 in the last week. Target Visit 8 PT Problem 3 PT Problem #3 Impaired Strength PT Goal 1 Goal Pt to demonstrate a functional lift and carry with 30lb without compensations Target Visit 8 PT Goal 2 Goal Pt to demonstrate BLE strength grossly 4+/5
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
--- NOTE | 2023-05-05 10:47 | PCPTNOTE ---
Patient called & cancelled scheduled appointment this date due to illness.
--- NOTE | 2023-05-11 11:19 | PCPTNOTE ---
Patient did not show up for scheduled appointment this date. Called and LVM with instructions to call to reschedule.
--- NOTE | 2023-05-13 11:04 | PCPTNOTE ---
Patient did not show up for scheduled appointment this date. Called and LVM with details of next appointment.
--- NOTE | 2023-05-19 15:50 | PCPTNOTE ---
Patient no showed to appointment this date. Patient will be discharged after today per no show policy.
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
== END 2023-05-21 13:57 | disposition home or self-care (01) ==
LOC: ANHGOSHPT 10:56
PROVIDERS: PCP Emergency Medicine; Visit Provider Obstetrics & Gynecology
DX: M54.2 Cervicalgia (principal); M79.629 Pain in unspecified upper arm; V89.2XXA Person injured in unspecified motor-vehicle accident, traffic, initial encounter
CPT/HCPCS: 97110; 97161; 99199

== ENCOUNTER 2023-06-08 10:47 | Outpatient (CLI) | payer OTHER, SELFPAY ==
--- NOTE | 2023-06-08 11:02 | ECG_ITS ---
Measurements Intervals [place] Rate: 62 P: 70 SC: 154 QRS: 79 QRSD: 97 T: 38 QT: 363 QTc: 370 Interpretive Statements SINUS RHYTHM POSSIBLE LEFT ATRIAL ENLARGEMENT [-0.1mV P WAVE IN V1/V2] INCOMPLETE RIGHT BUNDLE BRANCH BLOCK [90+ ms QRS DURATION, TERMINAL R IN V1/V2, 40+ ms S IN I/aVL/V4/V5/V6] NO PREVIOUS ECG AVAILABLE FOR COMPARISON Electronically Signed On 06-08-2023 15:46:02 [employer]IRT [employer]ESSER by Kendra Hutton M.D.
== END 2023-06-08 10:48 | disposition home or self-care (01) ==
PROVIDERS: PCP Emergency Medicine; Visit Provider Obstetrics & Gynecology
DX: R93.1 Abnormal findings on diagnostic imaging of heart and coronary circulation (principal); I45.10 Unspecified right bundle-branch block
CPT/HCPCS: 93005

== ENCOUNTER 2023-06-17 06:06 | Observation (INO) | payer OTHER, SELFPAY ==
[2023-06-17 06:24] VITALS: PULSE 75; O2SAT 100
[2023-06-17 06:25] VITALS: BP 111/64; PULSE 87; RESP 18; TEMP 36.4
[2023-06-17 06:31] VITALS: BMI 18.6
--- NOTE | 2023-06-17 06:32 | OBADM ---
This patient, Aicha Miles, admitted to the OB room 113 for observation for nausea/vomiting and dizziness. Patient/family oriented to hospital policies and general routines including ID bracelet, bed and alarms, visiting hours, pain management, procedures, bathroom and other care routines, personal items, smoking policy, room service/diet, and visiting hours. Patient/Family are encouraged to report perceived risks to care and to ask questions if they do not understand what they are told or what they should do.
[2023-06-17 06:58] LABS: Appearance Urine Cloudy (Clear); Bacteria Urine 2+ /hpf; Bilirubin Urine Negative (Negative); Blood Urine Negative (Negative); Color Urine Yellow (Yellow); Glucose Urine UA Negative (Negative); Ketones Urine Negative (Negative); Leukocyte Esterase Ur 2+ LEU/UL (Negative); Nitrate Urine Negative (Negative); Non Pathogenic Casts 0-2; Protein Urine Trace mg/dL (Negative); RBC Urine 0-2 /hpf (0-2); Specific Grav Ur 1.023 (1.001-1.035); Squamous Epithelial Cell Urine Moderate /hpf (Few); WBC Urine 21-50 /hpf
[2023-06-17 07:54] LABS: Add Urine Microscopic? YES
--- NOTE | 2023-06-17 08:08 | PC.NURSE ---
Called Dr. Maharaj via cell phone (per exchange and office instructions) and left message to call unit back regarding antepartum patient.
[2023-06-17] MEDS: LACTATED RINGERS 1,000 ML 999 ML IV CONT (09:18)
[2023-06-17] MEDS: FAMOTIDINE 20 MG/2 ML VIAL IV PUSH (09:19)
[2023-06-17] MEDS: ONDANSETRON INJ 4 MG/2 ML VIAL IV PUSH (09:19)
[2023-06-17 09:34] LABS: Basophils Percent Auto 0.3 % (0.2-1.2); Eosinophils Absolute Auto 0.2 K/mm3 (0-0.3); Eosinophils Percent Auto 1.2 % (0-4.4); Hematocrit 36.2 % (37.0-47.0); Hemoglobin 12.2 g/dL (12.0-15.0); Immature Granulocyte Absolute 0.07 K/mm3 (0.00-0.031); Immature Granulocyte Percent A 0.5 % (0-0.5); Lymphocytes Absolute Auto 2.25 K/mm3 (0.9-3.2); Lymphocytes Percent Auto 16.8 % (18.3-44.2); Mean Corpuscular HGB Conc 33.7 g/dl (32-36); Mean Corpuscular Volume 97.8 fl (80-100); Mean Platelet Volume 9.9 fl (7.4-10.4); Monocytes Absolute Auto 0.6 K/mm3 (0.1-0.6); Monocytes Percent Auto 4.4 % (2.6-8.5); Neutrophils Absolute Auto 10.3 K/mm3 (1.3-6.7); Neutrophils Percent Auto 76.8 % (45.5-73.1); Platelet Count Result 284 k/mm3 (150-375); Red Cell Distribution Width 14.1 % (11.5-14.5); White Blood Count 13.4 K/mm3 (4.5-10.0)
--- NOTE | 2023-06-17 09:39 | PC.NURSE ---
Dr. Maharaj at [facility]. Made aware of pt complaints, lab results, and orders by Dr. Burch. Will send pt home with gwen. No further orders given at this time.
[2023-06-17 09:45] LABS: Alanine Aminotransferase 11 U/L (6-35); Albumin Level 3.7 g/dL (3.5-5.1); Alkaline Phosphatase 41 U/L (38-126); Anion Gap 3 mmol/L (8-16); Aspartate Amino Transferase 20 U/L (14-36); Bilirubin,Total 0.7 mg/dL (0.2-1.3); Blood Urea Nitrogen 7 mg/dL (7-17); Calcium 8.6 mg/dL (8.4-10.2); Carbon Dioxide 25 mmol/L (22-30); Chloride 108 mmol/L (98-107); Estimated CRCL calculation 134 ml/min; Estimated Glomerular Filt Rate > 60; Glucose 88 mg/dL (65-110); Potassium 3.6 mmol/L (3.4-5.0); Sodium 136 mmol/L (137-145)
--- NOTE | 2023-06-17 10:50 | PC.NURSE ---
RN to bedside. All fluids and abx infused. Pt states she is feeling better, able to keep down crackers and water. IV removed. Tip in tact, bleeding controlled. Discharge to follow shortly.
--- NOTE | 2023-06-18 16:05 | PM.OBTRLD ---
OB - Triage/Final Diagnosis Visit Information Reason for evaluation: other (viral gastroenteritis) Comments/Additional reasons for admission: I have assessed the risk for this patient, Aicha Miles, and determined that she would benefit from observation care. Evaluation Laboratory results: Laboratory Tests 06/17/23 06/17/23 06:26 09:11 WBC 13.4 H RBC 3.70 L Hgb 12.2 Hct 36.2 L MCV 97.8 MCH 33.0 MCHC 33.7 RDW 14.1 Plt Count 284 MPV 9.9 Immature Gran % (Auto) 0.5 Neut % (Auto) 76.8 H Lymph % (Auto) 16.8 L [place] % (Auto) 4.4 Eos % (Auto) 1.2 Baso % (Auto) 0.3 Lymph # (Auto) 2.25 [place] # (Auto) 0.6 Eos # (Auto) 0.2 Baso # (Auto) 0.0 Abs Immat Gran (auto) 0.07 H Absolute Neuts (auto) 10.3 H Absolute Nucleated RBC 0.0 Nucleated RBC % 0.0 Sodium 136 L Potassium 3.6 Chloride 108 H Carbon Dioxide 25 Anion Gap 3 L BUN 7 Creatinine 0.40 L Estim Creat Clear Calc 134 Estimated GFR > 60 Glucose 88 Calcium 8.6 Total Bilirubin 0.7 AST 20 ALT 11 Alkaline Phosphatase 41 Total Protein 7.0 Albumin 3.7 Urine Color Yellow Urine Appearance Cloudy H Urine pH 7.0 Ur Specific [place] 1.023 Urine Protein Trace Urine Glucose (UA) Negative Urine Ketones Negative Ur Blood (Man) Negative Urine Nitrate Negative Urine Bilirubin Negative Urine Urobilinogen 1.0 Leukocyte Esterase Rfl 2+ H Urine RBC 0-2 Urine WBC 21-50 H Ur Squamous Epith Cells Moderate Urine Bacteria 2+ H Urine Casts 0-2
== END 2023-06-17 11:10 | disposition home or self-care (01) ==
PROVIDERS: Obstetrics & Gynecology; Admitting Provider Obstetrics & Gynecology; PCP Emergency Medicine; Visit Provider Obstetrics & Gynecology
DX: O99.612 Diseases of the digestive system complicating pregnancy, second trimester (principal); A08.4 Viral intestinal infection, unspecified; Z3A.21 21 weeks gestation of pregnancy
CPT/HCPCS: 36415; 80053; 81001; 85025; 87086; 87088; 96374; 96375; G0378; G0379; J0696; J2405; J7120

== ENCOUNTER 2023-08-27 13:29 | Outpatient (RCR) | payer OTHER, SELFPAY ==
[2023-08-28] MEDS: RHO(D) IMMUNE GLOBULIN 300 MCG/2 ML SYRINGE IM (15:30)
== END 2023-11-25 23:59 | disposition home or self-care (01) ==
LOC: ANHLAB 13:29
PROVIDERS: PCP Emergency Medicine; Visit Provider Obstetrics & Gynecology
DX: Z29.13 Encounter for prophylactic Rho(D) immune globulin (principal); O36.0190 Maternal care for anti-D [Rh] antibodies, unspecified trimester, not applicable or unspecified; Z3A.00 Weeks of gestation of pregnancy not specified
CPT/HCPCS: 36415; 85461; 86850; 86900; 86901; 90384; 96372; J2790

== ENCOUNTER 2023-10-07 19:00 | Observation (INO) | payer OTHER, SELFPAY ==
[2023-10-07 22:17] VITALS: TEMP 36.7
--- NOTE | 2023-10-08 10:27 | PM.OBTRLD ---
OB - Triage/Final Diagnosis Visit Information Date of evaluation: 10/07/23 Reason for evaluation: threatened labor Comments/Additional reasons for admission: I have assessed the risk for this patient, Aicha Mlies, and determined that she would benefit from observation care. Evaluation Vital signs: Vital Signs - 24 hr 10/07/23 22:17 10/07/23 22:17 Temperature 98.1 F Oxygen Delivery Room Air
== END 2023-10-07 22:02 ==
PROVIDERS: Admitting Provider Student in an Organized Health Care Education/Training Program; Visit Provider Student in an Organized Health Care Education/Training Program
DX: O47.1 False labor at or after 37 completed weeks of gestation (principal); Z3A.37 37 weeks gestation of pregnancy
CPT/HCPCS: G0378; G0379

== ENCOUNTER 2023-10-13 18:03 | Observation (INO) | payer OTHER, SELFPAY ==
--- NOTE | 2023-10-13 21:19 | PC.NURSE ---
2100- Dr. Maharaj responded to page. RN made MD aware of pts arrival to unit and complaint of contractions. RN made MD aware of SVE (5/80%/-2) that has been unchanged for 2 hours as well as pt stating that contractions have stopped and she would like to return home. Orders received for discharge.
== END 2023-10-13 21:18 | disposition home or self-care (01) ==
PROVIDERS: Admitting Provider Obstetrics & Gynecology; Visit Provider Obstetrics & Gynecology
DX: O47.00 False labor before 37 completed weeks of gestation, unspecified trimester (principal); Z3A.00 Weeks of gestation of pregnancy not specified
CPT/HCPCS: G0378; G0379

== ENCOUNTER 2023-10-16 06:10 | Inpatient (IN) | payer OTHER, SELFPAY ==
[2023-10-16] VITALS (128 sets, daily range): BP systolic 100–161; BP diastolic 52–144; PULSE 70–170; RESP 16–18; TEMP 36.1–37.1; O2SAT 76–100; BMI 20.2
[2023-10-16 07:02] LABS: Basophils Absolute Auto 0.1 K/mm3 (0.0-0.1); Basophils Percent Auto 0.4 % (0.2-1.2); Eosinophils Absolute Auto 0.2 K/mm3 (0-0.3); Eosinophils Percent Auto 1.2 % (0-4.4); Hematocrit 34.7 % (37.0-47.0); Hemoglobin 11.8 g/dL (12.0-15.0); Immature Granulocyte Absolute 0.12 K/mm3 (0.00-0.031); Immature Granulocyte Percent A 0.8 % (0-0.5); Lymphocytes Absolute Auto 3.22 K/mm3 (0.9-3.2); Lymphocytes Percent Auto 22.2 % (18.3-44.2); Mean Corpuscular Hemoglobin 31.8 pg (26-34); Mean Corpuscular Volume 93.5 fl (80-100); Mean Platelet Volume 10.6 fl (7.4-10.4); Monocytes Absolute Auto 0.9 K/mm3 (0.1-0.6); Monocytes Percent Auto 5.9 % (2.6-8.5); Neutrophils Absolute Auto 10.1 K/mm3 (1.3-6.7); Neutrophils Percent Auto 69.5 % (45.5-73.1); Platelet Count Result 345 k/mm3 (150-375); Red Blood Count 3.71 M/mm3 (4.2-5.4); Red Cell Distribution Width 13.3 % (11.5-14.5); White Blood Count 14.5 K/mm3 (4.5-10.0)
[2023-10-16] MEDS: LACTATED RINGERS 1,000 ML 125 ML IV CONT ×2 (07:10→07:45)
[2023-10-16] MEDS: OXYTOCIN 30 UNITS/NS 500 ML 30 UNITS/500 ML BAG IV CONT (07:10)
--- NOTE | 2023-10-16 07:20 | LDADM ---
This patient, Aicha Miles, was admitted to Labor/Delivery/Recovery 108 on 10/16/23 at 06:10. Plans for labor, pain management and were discussed with patient. Patient/family oriented to hospital policies and general routines including ID bracelet, bed and alarms, visiting hours, pain management, procedures, bathroom and other care routines, personal items, smoking policy, room service/diet and guest tray routines, security routines, and visiting hours. Patient/Family are encouraged to report perceived risks to care and to ask questions if they do not understand what they are told or what they should do. See OBIX for further documentation.
[2023-10-16 07:53] LABS: HIV 1/2 Ab P24 Ag Result Negative (Negative)
--- NOTE | 2023-10-16 08:28 | WPDANESEPP ---
Anes - Eval Pre Procedure Procedure: labor epidural Operation Date: 10/18/23 07:30 Proposed Procedures p Section - Jordan Maharaj MD Date/Time: 10/16/23 08:28 Preop Diagnosis: labor pain Pre Op Diagnosis: IOL Patient Data Age: 38 Gender: F Height: 1.7 m Weight: 58.5 kg Last Vital Signs Temp 36.7 C 10/16/23 07:15 Pulse 117 H 10/16/23 08:27 BP 119/78 10/16/23 08:27 Pulse Ox 100 10/16/23 08:27 O2 Del Method Room Air 10/16/23 07:20 Allergies Allergy/AdvReac Type Severity Reaction Status Date / Time Sulfa (Sulfonamide AdvReac Other Verified 10/16/23 07:15 Antibiotics) Home Medications Medication Instructions Recorded Confirmed Type ondansetron HCl 4 mg tablet 4 mg PO Q6H PRN nausea and 06/17/23 10/16/23 Rx vomiting #30 tabs vit no.95-ferrous 1 tablet PO DAILY 06/17/23 10/11/23 History fumarate 28 mg-folic acid 800 mcg tablet () sertraline 50 mg tablet 50 mg PO DAILY #90 tabs 08/03/23 10/11/23 Rx polyethylene glycol 3350 17 17 g PO DAILY 09/14/23 10/11/23 History gram/dose oral powder (Miralax) Culturelle Baby Probiotic-DHA 1 tab-cap PO DAILY 09/27/23 10/11/23 History cetirizine 5 mg tablet 5 mg PO DAILY PRN Allergy Symptoms 10/16/23 10/16/23 History Laboratory Tests 10/16/23 06:52 WBC 14.5 H K/mm3 (4.5-10.0) RBC 3.71 L M/mm3 (4.2-5.4) Hgb 11.8 L g/dL (12.0-15.0) Hct 34.7 L % (37.0-47.0) MCV 93.5 fl (80-100) MCH 31.8 pg (26-34) MCHC 34.0 g/dl (32-36) RDW 13.3 % (11.5-14.5) Plt Count 345 k/mm3 (150-375) MPV 10.6 H fl (7.4-10.4) Immature Gran % (Auto) 0.8 H % (0-0.5) Neut % (Auto) 69.5 % (45.5-73.1) Lymph % (Auto) 22.2 % (18.3-44.2) [place] % (Auto) 5.9 % (2.6-8.5) Eos % (Auto) 1.2 % (0-4.4) Baso % (Auto) 0.4 % (0.2-1.2) Lymph # (Auto) 3.22 H K/mm3 (0.9-3.2) [place] # (Auto) 0.9 H K/mm3 (0.1-0.6) Eos # (Auto) 0.2 K/mm3 (0-0.3) Baso # (Auto) 0.1 K/mm3 (0.0-0.1) Abs Immat Gran (auto) 0.12 H K/mm3 (0.00-0.031) Absolute Neuts (auto) 10.1 H K/mm3 (1.3-6.7) Absolute Nucleated RBC 0.000 K/mm3 (0.0-0.012) Nucleated RBC % 0.0 % (0.0-0.2) RPR Pending HIV 1&2 Ab/P24 Ag 4thGn Negative (Negative) Blood Type A Negative Antibody Screen Positive Antibody Identification Pending Antigen Identification Pending RHIANNA, IgG Interpret Pending RHIANNA, Poly Interpret Pending RHIANNA, Complement Interp Pending Patient hx anesthesia problems: none Family hx anesthesia problems: none Results Review: All pre-operative results and documents have been reviewed as part of the pre-operative evaluation. [facility] Past Medical History Medical History Depression Kidney stones Surgical History Surgical History History of tonsillectomy at age 8 No pertinent past surgical history Family History Family History Mother Kidney stone Anxiety Depression Hypertension Sibling Kidney stone Grandparent Cancer Father Cerebrovascular accident Other Patient's mother is Social History Social History Smoking status: Former smoker Tobacco type: cigarettes Second hand tobacco smoke exposure: Yes Alcohol intake: never Substance use: never Substance use type: does not use Do You Feel Safe in your Home?: Yes Lack of Transportation: No Lack of Food: Never True Current Housing: I Do Not Have Housing Concerned About Future Housing: No Difficulty Paying Gas/Electric Bills: No Difficulty Paying for Meds: No Currently Unemployed: No Education: High School Diploma/GED Difficulty w/ Childcare or Family Care:
--- NOTE | 2023-10-16 10:07 | WPDOBADMIT ---
Obstetrics - Admit Note Admission Note: record reviewed. No pertinent additions to the history and/or any subsequent changes in the physical findings that are not consistent with the expected course of the were found. Additions to the history and/or subsequent changes in the physical findings follow. None.
--- NOTE | 2023-10-16 10:08 | WPDHPUPDATE1 ---
History and Physical Update Update Date/Time: 10/16/23 10:08 History and Physical has been reviewed, including an updated exam of the patient. There are NO changes in the patient's condition. Risks, benefits, and alternatives have been discussed and questions answered. Patient agrees to proceed with procedure.
--- NOTE | 2023-10-16 10:08 | PM.OBPRVD ---
OB - Vaginal Delivery Note Procedure Delivery date: 10/16/23 Induction method: AROM Delivery augmentation: Pitocin Delivery monitor: External FHT and External Uterine Route of delivery: Episiotomy description: None Laceration Description: None Specimen: No Quantitative Blood Loss (ml): 200 Anesthesia type: Epidural Disposition: PACU Complications: No immediate complications Narrative: Patient prepped and draped in the usual manner this procedure. Maternal expulsive efforts readily vertex, nuchal cord was noted reduced, and the rest of baby delivered without difficulty. Cord was clamped cut and placenta delivered spontaneously. Uterus was well contracted with minimal bleeding. Cervix vagina vulva were inspected minimal laceration. No significant bleeding. This point the immediate postoperative condition mother baby with excellent. [place] Baby Weeks of gestation at delivery: 39 Infant gender: Female presentation: vertex position: Right Occiput Anterior Placenta delivery description: Spontaneous Cord Vessel Description: 3 Vessels, Nuchal Cord and Reduced
[2023-10-16] MEDS: OXYTOCIN 30 UNITS/NS 500 ML 30 UNITS/500 ML BAG 125 UNITS IV CONT ×2 (10:25→10:38)
[2023-10-16] MEDS: BENZOCAINE 20% AER SPR (*SP) 56 GM CAN 1 SPRAY TOPICAL (13:10)
[2023-10-16] MEDS: IBUPROFEN 600 MG TABLET PO ×2 (13:10→19:16)
[2023-10-16] MEDS: ACETAMINOPHEN 325 MG TABLET 650 MG PO ×2 (13:10→23:30)
[2023-10-16] MEDS: WITCH HAZEL 40 PADS 1 PAD TOPICAL (13:10)
--- NOTE | 2023-10-16 13:47 | OBPPTRN ---
Patient transferred to post room #281 via wheelchair. Support person present. Oriented to unit, room, information board, rooming in, admission packet and security measures. Patient verbalizes understanding.
[2023-10-16] MEDS: DOCUSATE SODIUM 100 MG CAPSULE PO (17:45)
[2023-10-16] MEDS: LORATADINE 10 MG TABLET PO (17:48)
--- NOTE | 2023-10-16 18:19 | PHAR ---
PT'S HOME MED [facility] WOMEN'S 4 IN 1 PROBIOTIC VERIFIED BY PHARMACY
[2023-10-17] VITALS: BP 109/62; PULSE 74; RESP 18; TEMP 36.4; O2SAT 98
[2023-10-17 04:40] LABS: Hematocrit 32.8 % (37.0-47.0); Hemoglobin 10.7 g/dL (12.0-15.0)
[2023-10-17] MEDS: IBUPROFEN 600 MG TABLET PO ×2 (06:35→12:23)
[2023-10-17 07:55] VITALS: BP 105/66; PULSE 87; RESP 20; TEMP 36.7; O2SAT 98
--- NOTE | 2023-10-17 07:57 | PM.OBDSVD ---
DS: Admitting Diagnosis Discharge Date 10/17/2023 Admitting Diagnosis DS: Discharge Diagnosis Discharge Diagnosis (1) , delivered: Code(s): O80 - Encounter for full-term uncomplicated delivery Status: Acute OB - DS: Summary OB Procedures : None OB Procedures Intrapartum: Spontaneous Vag Delivery OB Procedures: : None Peripartum Data Laceration Description: None Episiotomy description: None Procedures: Procedures Operation Date: 10/18/23 07:30 <No data on this case meets the specified criteria> Time Spent with Patient Time attestation: Total time spent providing and/or coordinating discharge services: DS: Data Data Completed and Pending Labs on day of discharge: Labs from last 24 hours 10/17/23 10/16/23 03:58 06:52 Hgb 10.7 L Hct 32.8 L Blood Type A Negative A Negative Antibody Screen TNP Positive Antibody Identification Passive Due to RH Imm Glob Antigen Identification Cancelled RHIANNA, IgG Interpret TNP RHIANNA, Poly Interpret Neg RHIANNA, Complement Interp TNP Screen Negative Baby's Blood Type A pos Baby's RHIANNA Positive Doses of RhIg Required 1 Discharge Plan Discharge Discharging Clinician: Jordan Maharaj Patient Disposition: Home, Self-Care Activity: as tolerated Diet: as tolerated Patient Instructions: Antibiotic Form Stand Alone Forms: General Discharge Information Follow-up/Referrals: Jordan Maharaj MD [Physician] - 3 Weeks Discharge Medications: New ibuprofen 600 mg Tablet 600 mg PO Q6H PRN (Reason: Cramping) Qty: 30 0RF Continued sertraline 50 mg tablet 50 mg PO DAILY Qty: 90 3RF polyethylene glycol 3350 [Miralax] 17 gram/dose powder 17 g PO DAILY Culturelle Baby Probiotic-DHA 1 tab-cap PO DAILY cetirizine [Zyrtec] 5 mg Tablet 5 mg PO DAILY PRN (Reason: Allergy Symptoms) PNV cmb#95-ferrous fumarate-FA [] 28 mg iron- 800 mcg Tablet 1 tablet PO DAILY ondansetron HCl 4 mg tablet 4 mg PO Q6H PRN (Reason: nausea and vomiting) Qty: 30 1RF Date of admission: 10/16/23 06:10 Primary Care Provider: UNKNOWN,DOCTOR Admitting Provider: Jordan Maharaj Attending physician on admission: Jordan Maharaj Condition: Stable
[2023-10-17] MEDS: DOCUSATE SODIUM 100 MG CAPSULE PO (08:26)
[2023-10-17] MEDS: ACETAMINOPHEN 325 MG TABLET 650 MG PO ×2 (08:26→15:12)
[2023-10-17] MEDS: SERTRALINE HCL 50 MG TABLET PO (08:26)
[2023-10-17] MEDS: MULTIVIT/MIN/PREN/FOL AC/IRON TABLET 1 TAB PO (08:26)
[2023-10-17] MEDS: RHO(D) IMMUNE GLOBULIN 300 MCG/2 ML SYRINGE IM (14:31)
--- NOTE | 2023-10-17 16:09 | WPDANLDPN2 ---
Anes-Prog Note L&D Date/Time: 10/17/23 16:09 Comfortable throughout: labor and delivery Neuraxial method: epidural Epidural/Spinal procedure site: clean & non-tender Neuro status: Neuro function grossly intact. Cardiovascular status: normal Respiratory status: normal Airway patency: baseline Mental status: baseline Post-Op hydration status: normal Vital Signs: Last Vital Signs Temp 36.7 C 10/17/23 07:55 Pulse 87 10/17/23 07:55 Resp 20 10/17/23 07:55 BP 105/66 10/17/23 07:55 Pulse Ox 98 10/17/23 07:55 O2 Del Method Room Air 10/17/23 08:20 Pain score (VAS): 2 I/O: Intake & Output 10/17/23 10/17/23 10/17/23 07:59 15:59 23:59 Intake Total 0 Balance 0 Post-procedural complaints: none Patient feedback: Patient satisfied with anesthetic care.
--- NOTE | 2023-10-17 17:20 | PC.NURSE ---
Patient viewed the discharge video Mother [facility] Baby [facility], The First Two Weeks . Patient was given the opportunity and encouraged to ask questions. Patient verbalized understanding of information shared and has been given the mother/baby guide for home reference.
[2023-10-17 19:00] VITALS: BP 119/75; PULSE 64; RESP 18; TEMP 36.9; O2SAT 100
--- NOTE | 2023-10-17 20:37 | PC.NURSE ---
Please note in charting any charting under Luis Alfredo Pineda RN after 1800 was actually Dhruv Bedoya RN charting in error under Luis Alfredo Pineda RN.
[2023-10-18 08:19] VITALS: BP 99/70; PULSE 71; RESP 18; TEMP 36.5; O2SAT 98
[2023-10-18 14:00] LABS: Rapid Plasma Reagin Non-Reactive (NonReactive)
== END 2023-10-17 19:18 | disposition home or self-care (01) | DRG 807 ==
LOC: ANHLDR 06:14 → ANHOB2 14:25
PROVIDERS: Admitting Provider Obstetrics & Gynecology; Visit Provider Obstetrics & Gynecology
DX: O69.81X0 Labor and delivery complicated by cord around neck, without compression, not applicable or unspecified (principal); Z37.0 Single live birth; Z3A.39 39 weeks gestation of pregnancy
CPT/HCPCS: 36415; 85014; 85018; 85025; 85461; 86592; 86703; 86850; 86880; 86900; 86901; 86902; 90384; A9270; G0432; J2590; J2790; J2795; J7120